=== PATIENT | male | born 1960 | race Two or more races ===

== ENCOUNTER 2024-04-30 09:51 | Outpatient (AMB) | payer OTHER, SELFPAY ==
[2024-04-30 10:20] VITALS: BP 136/58; PULSE 66; O2SAT 97; BMI 41.7
--- NOTE | 2024-04-30 10:20 | A.OFFVIS_ITS ---
Vital Signs 04/30/24 10:20 Height 6 ft 2 in Weight 325 lb 2.909 oz BMI 41.7 BP 136/58 L Blood Pressure Location Rt brachial Position Sitting Pulse 66 Pulse Source Doppler Pulse Oximetry (%) 97 Oxygen Delivery Method Room Air Intake Visit Reasons: prabhakar Allergies No Known Allergies Allergy (Verified 04/30/24 10:26) HPI HPI prabhakar: Details: 64-year-old gentleman, history of obstructive sleep apnea, previously severe and intolerant of CPAP therapy, however with significant weight changes recently who is interested in further evaluation. His complain of unrestful sleep and daytime sleepiness, also nocturia, but no morning headaches. [facility] Social History (Updated 04/30/24 @ 10:26 by Zaria Amador [facility]) Patient Tobacco Use Status: Never used Tobacco Review of Systems Const Reports daytime sleepiness, Denies excessive sweating, Reports fatigue, Denies fever(s), Denies lethargy, Denies malaise, Denies night sweats, Reports snoring and Denies weight loss Eyes Denies blurry vision and Denies itchy eyes ENT Denies nasal congestion, Denies post nasal drip, Denies sinus pain, Denies sinus pressure and Denies other ( Thrush) Card Denies chest pain, Denies pedal edema, Denies dyspnea, Denies orthopnea and Denies paroxysmal nocturnal dyspnea Resp Denies cough, Denies hemoptysis, Denies excessive phlegm production, Denies dyspnea, Reports snoring and Denies wheezing GI Denies abdominal pain and Denies heartburn Musc Denies myalgias, Denies arthralgias and Denies joint swelling Skin/Breast Denies rash Neuro Denies memory loss and Denies seizure-like activity Psych Denies abnormal sleep pattern, Denies anxiety and Denies memory loss Endo Denies excessive sweating, Reports fatigue and Denies heat intolerance Behzad/Lymph Denies easy bruising Aller/Immun Denies itchy eyes, Denies seasonal rhinorrhea and Denies wheezing Physical Exam Vital Signs: Last Vital Signs Pulse 66 04/30/24 10:20 BP 136/58 L 04/30/24 10:20 Pulse Ox 97 04/30/24 10:20 Oxygen Delivery Method Room Air 04/30/24 10:20 BMI result Body Mass Index 41.7 Const General: no acute distress and alert Nutritional Appearance: obese Orientation/consciousness: Other orientation findings ( oriented) HEENT Head: Yes atraumatic Eyes General: appearance normal, both eyes and all related structures Sclerae: sclerae normal EOM: EOMs intact bilaterally Neck Neck: Yes supple Lymphatic: no lymphadenopathy noted Resp Effort & Inspection: normal respiratory effort and no use of accessory muscles Auscultation: clear to auscultation bilaterally Cardio Rate: regular rate Rhythm: regular rhythm Heart sounds: no gallops, no murmurs and no rubs Skin General skin exam: other ( warm) Extrem General: No clubbing, No cyanosis and No edema Assessment & Plan Assessment & Plan (1) PRABHAKAR (obstructive sleep apnea): Code(s): G47.33 - Obstructive sleep apnea (adult) (pediatric) Category: Medical Plan: Unrestful sleep, daytime sleepiness, snoring. [place] Sleepiness Scale score of 16. Will obtain home sleep study. Orders: Orders RT home sleep study Today G47.33 - Obstructive sleep apnea (adult) (pediatric) Coding Level of Care Code New Pt Level 3 (55331) Diagnoses PRABHAKAR (obstructive sleep apnea) G47.33
--- OUTSIDE RECORDS SUMMARY | 2024-04-30 10:58 | XMS_ITS | Clinical Summary ---
[facility] Organization [facility] Address [address] [place] [address] Care Team Providers Care Visitor Use Assistant Name Role Phone Christopher Vogel MD Primary Care Provider Unavailab le Allergies No known active allergies Medications Medication Sig Dispensed Refills Start Date End Date Status Folic Acid 5 MG CAPS Take by mouth. 0 Active Upadacitinib ER 15 MG TB24 Take by mouth daily. 0 Acti ve amLODIPine (NORVASC) tablet 10 mg Take 1 tablet (10 mg total) by mouth daily. 0 Active Efinaconazole 10 % SOLN Apply 1 application topically daily. 8 mL 2 09/10/2019 Active methotrexate 2.5 MG tabletIndications:Rh eumatoid Arthritis Take 1 tablet (2.5 mg total) by mouth every 7 days. 0 Active Meloxicam 5 MG CAPS Take by mouth daily. 0 Active Social History Tobacco Use Types Packs/Day Years Used Date Smoking Tobacco: Never Passive Smoke Exposure: Never Smokeless Tobacco: Never Tobacco Cessation:Counseling Given: Not Answered Alcohol Use Standard Drinks/Week Comments Yes 0 (1 standard drink = 0.6 oz pur e alcohol) occasional Sex and Gender Information Value Date Recorded Sex Assigned at Male 04/19/2022 10:52 AM EST Gender Identity Not on file Sexual Orientation Not on file Job Start Date Occupation Industry Not on file Not on file Not on file Last Filed Vital Signs Vital Sign Reading Time Taken Comments Blood Pressure - - Pulse - - Temperature 36.3 ??C (97.3 ??F) 09/10/2019 3:06 PM ED T Respiratory Rate - - Oxygen Saturation - - Inhaled Oxygen Concentration - - Weight 129.3 kg (285 lb) 04/19/2022 10:50 AM EST Height 188 cm (6' 2 ) 04/19/2022 10:50 AM EST Body Mass Index 36.59 04/19/2022 10:50 AM EST Plan of Treatment Health Maintenance Due Date Last Done Comments Hepatitis C Screening 1960 COVID-19 Vaccine (#1) 1960 Depression Screening 1972 Preventative Health Evaluation 1978 DTap / Tdap / Td (1 - Tdap) 1979 Colon Cancer Screening (Colonoscopy) 2005 Shingrix-Zoster Vaccine (1 of 2) 2010 Influenza Vaccine (#1) 2023 Pneumococcal Vaccine (1 of 1 - PCV) 2025 RSV Adult > 60+ Yrs or Pregn ant (1 - 1-dose 75+ series) 2035 Hepatitis B Vaccines Aged Out No long er eligible based on patient's age to complete this topic Pneumococcal Vaccine Aged Out No long er eligible based on patient's age to complete this topic RSV Ped < 20 months Aged Out No longe r eligible based on patient's age to complete this topic Care Teams Visitor Use Assistant Relationship Specialty Start Date End Date Christopher Vogel MD PCP - General Internal Medicine 12/05/23
--- OUTSIDE RECORDS SUMMARY | 2024-04-30 10:58 | XMS_ITS | Encounter Summary ---
Author Organization [facility] Address [address] [place] [address] Care Team Providers Care Blow Molder Name Role Phone Christopher Vogel MD Primary Care Provider [phone] Reason for Visit * Reason Onset Date Comments Eleuterio Lanza 04/07/2024 Encounter Details Date Type Department Care Team ([facility] st Contact Info) Description 04/07/2024 Telephone Internal Medicine - [place] [address] [facility] [address] [place] [phone] Christopher Vogel MD 175 [facility] [address] [place] [address] Eleuterio Lanza Social History Tobacco Use Types Packs/Day Years Used Date Smoking Tobacco: Never Smokeless Tobacco: Never Alcohol Use Standard Drinks/Week Comments Yes 0 (1 standard drink = 0.6 oz pur e alcohol) Sex and Gender Information Value Date Recorded Sex Assigned at Not on file Legal Sex Male 5:43 AM EST Gender Identity Not on file Sexual Orientation Not on file documented as of this encounter Progress Notes * Glenys Palma MA - 04/23/2024 9:11 AM EST matt could you help with this? * Jana Nicolas - 04/21/2024 11:29 AM EST Patient called and requested a call back when this cologaurd is sent because he has been waiting for over a week. Cb# [phone] * Ariane Jesus MA - 04/16/2024 11:09 AM EST Order printed. Cologuard form completed waiting on provider signature. * Jana Nicolas - 04/15/2024 11:56 AM EST Patient called about message below and requested a call back. Cb# [phone] * Sheryl Felix MA - 04/09/2024 2:13 PM EST Tried to reach patient, no answer, left message to call back 04/09/24 Sheryl Felix MA * Christopher Vogel MD - 04/08/2024 11:28 AM EST Cologuard is not as good as colonoscopy. Did order Cologuard * Glenys Palma MA - 04/08/2024 8:53 AM EST Please advise * Jana Nicolas - 04/07/2024 4:40 PM EST Patient called and requested a cologaurd be sent to him instead of doing a full colonoscopy. Cb# [phone] documented in this encounter Plan of Treatment Not on file documented as of this encounter Visit Diagnoses Not on filedocumented in this encounter Care Teams Blow Molder Relationship Specialty Start Date End Date Christopher Vogel MD [address] [address] PCP - General 08/16/23 documented as of this encounter
--- OUTSIDE RECORDS SUMMARY | 2024-04-30 10:58 | XMS_ITS | Encounter Summary ---
Author Organization [facility] Address [address] [place] [address] Care Team Providers Care Coil Taper Name Role Phone Christopher Vogel MD Primary Care Provider [phone] Reason for Visit * Reason Onset Date Comments Jaspreet - Referral 04/16/2024 Encounter Details Date Type Department Care Team (Late st Contact Info) Description 04/16/2024 Telephone Internal Medicine - [place] [address] [place] [phone] Christopher Vogel MD 175 [facility] [address] [place] [address] Jaspreet - Referral Social History Tobacco Use Types Packs/Day Years [...] as of this encounter Progress Notes * Ariane Jesus MA - 04/17/2024 10:44 AM EST Pt is not seeing Dr. Kraus, he is seeing [facility] needs a new referral to [facility] NPI#[id number]. Please advice. * Malean Trimble - 04/16/2024 3:48 PM EST Received call from [facility], they need a new referral to be faxed because pt isn't seeing Dr Kraus, he is seeing [facility] npi# [id number] Please send updated referral, ty * Glenys Palma MA - 04/16/2024 2:28 PM EST Faxed referral via epic to number provided * Annmarie Foster - 04/16/2024 9:58 AM EST Received a fax from [facility] for an insurance referral. Saw referral in pt chart placed 03/14/24 to correct provider KEREN KRAUS MD - NPI #[id number]. But his location is [address] [place] [address]. Fax referral to [phone]. documented in this encounter Plan of Treatment Not on file documented as of this encounter Visit Diagnoses Not on filedocumented in this encounter Care Teams Coil Taper Relationship Specialty Start Date End Date Christopher Vogel MD [address] [place] [address] [address] [place] [address] PCP - General 08/16/23 documented as of this encounter
--- OUTSIDE RECORDS SUMMARY | 2024-04-30 10:58 | XMS_ITS | Clinical Summary ---
Author Organization [facility] Address [address] [place] [address] Phone Care Team Providers Care Set Rider Name Role Phone Christopher Vogel MD Primary Care Provider [phone] Allergies No known active allergies Medications efinaconazole 10 % solution with applicator Apply 1 application topically daily. 09/10/19 20 Active FOLIC ACID ORAL Folic Acid 5 MG CAPS Take by mouth. - Oral Active meloxicam submicronized 5 mg capsule Take by mouth daily. Active methotrexate 2.5 mg tablet Take 1 tablet (2.5 mg total) by mouth every 7 days. Active upadacitinib (Rinvoq) 15 mg tablet extended release 24 hr Take by mouth daily. Active amLODIPine (NORVASC) 10 mg tablet Take 1 tablet (10 mg total) by mouth 1 (one) time each day. Take 1 tablet (10 mg total) by mouth daily. - Oral 90 tablet 1 02/21/19 25 Active valsartan (DIOVAN) 320 mg tablet Take 1 tablet (320 mg total) by mouth 1 (one) time each day. 60 tablet 1 03/05/19 25 Active bisacodyL (DULCOLAX) 5 mg EC tablet Take 2 tablets by mouth right before beginning bowel prep. See instructions provided by the office 2 tablet 04/23/19 25 Active polyethylene glycol (Golytely) 236-22.74-6.74 -5.86 gram solution Take 4L by mouth once for one dose. May substitue any PEG. Starting at 6PM the night before your procedure drink 1 8oz glasses at your own pace until you complete half of the gallon. Finish 2nd half of the gallon 5 hours before your procedure. 4000 mL 04/23/19 25 Active Active Problems Problem Noted Date Diagnosed Date Hx of vasectomy 03/07/2024 History of implantation of penile prosthesis Benign essential HTN 03/07/2024 Generalized osteoarthritis 03/07/2024 Overview (03/07/2024): knee, foot, lumbar spine; sees Dr. Oneil Obesity 03/07/2024 Suspected COVID-19 virus infection 03/07/2024 Insomnia 07/11/2021 Nocturnal hypoxemia 09/07/2020 [place] (03/07/2024[place] [facility] [place]: Date 06/11/2018; Wt 315#; BMI 42; AHI 87 Obstructive apneas 147; Mixed apneas 0; Central apneas 5; hypopneas 360; average oxygen saturation 91% (lowest 71% with saturations <88% for 5% or more of study) - Obstructive Sleep Apnea - severe; mostly hypopneas with obstructive apneas; with sleep related hypoventilation by 2020 home sleep apnea test. Erectile dysfunction 09/03/2020 Overview (03/07/2024): Cialis 20 mg from /Urologist-- 24 tab for 90 days. Has 3 refills Last seen 1 yr ago. Recently seen for BPH- had studies done History of COVID-19 09/03/2020 Overview (03/07/2024): Positive PCR test 01/02/20 Hyperlipidemia 09/03/2020 Migraine 09/03/2020 Obstructive sleep apnea 09/03/2020 Psoriasis 09/03/2020 Rheumatoid arthritis 09/03/2020 Overview (03/07/2024): [facility] [place] Severe obesity (BMI 35.0-39.9) with comorbidity 09/03/2020 Primary osteoarthritis of right knee 08/30/2020 Herpes simplex type 2 infection 02/05/2013 Recurrent acute tonsillitis 04/04/2005 Encounters Date Type Department Care Team Description 04/16/2024 Telephone Internal Medicine [address] [phone] Christopher Vogel MD Jaspreet - Referral 04/07/2024 Telephone Internal Medicine [address] [phone] Chirstopher Vogel MD Jaspreet: Cologaurd 03/14/2024 11:30 AM EST Office Visit Internal Medicine [address] [phone] Christopher Vogel MD Primary hypertension (Primary Dx); Pure hypercholesterolemia; HUMBERTO (obstructive sleep apnea) 03/05/2024 [place] [facility] [address] [phone] Christopher Vogel MD Breathing Problem from Last 3 Months Surgical History Surgery Date Site/Laterality Comments TONSILLECTOMY ADENOIDECTOMY, BILATERAL MYRINGOTOMY AND TUBES PROCEDURE: [place] TONSILLECTOMY & ADENOIDECTOMY <AGE 12 KNEE ARTHROSCOPY W/ MENISCAL REPAIR 2018 Left PROCEDURE: [place] ARTHROSCOPY KNEE W/MENISCUS RPR MEDIAL/LATERAL KNEE ARTHROSCOPY W/ MENISCAL REPAIR 2019 Left PROCEDURE: [place] ARTHROSCOPY KNEE W/MENISCUS RPR MEDIAL/LATERAL VASECTOMY Bilateral PROCEDURE: [place] VASECTOMY UNI/BI SPX W/POSTOP SEMEN EXAMS TONSILLECTOMY PROCEDURE: HISTORICAL TONSILLECTOMY COLONOSCOPY 06/11/2014 PROCEDURE: HISTORICAL COLONOSCOPY KNEE ARTHROSCOPY W/ MENISCAL REPAIR 01/2021 Right PROCEDURE: [place] ARTHROSCOPY KNEE W/MENISCUS RPR MEDIAL/LATERAL ORTHOPEDIC SURGERY 04/2022 Left PROCEDURE: HISTORICAL ORTHOPEDIC SURGERY; COMMENT: left foot Medical History Medical History Date Comments Essential hypertension DX:Essent ial hypertension Primary osteoarthritis of right knee 08/30/2020 DX:Primary osteoarthritis of right knee Severe obesity (BMI 35.0-39. 9) with comorbidity (CMS/HCC) 09/03/2020 DX:Severe obesity (BMI 35.0- 39.9) with comorbidity (HCC) Erectile dysfunction 09/03/2020 DX:Erectile dysfunction Hyperlipidemia 09/03/2020 DX:Hyperlipidemi a Herpes simplex type 2 infection 09/03/2020 DX:Herpes simplex type 2 infection Migraine 09/03/2020 DX:Migraine Psoriasis 09/03/2020 DX:Psoriasis Rheumatoid arthritis (CMS/HCC) 09/03/2020 D X:Rheumatoid arthritis (HCC) Obstructive sleep apnea 09/03/2020 DX:Obstr uctive sleep apnea History of COVID-19 09/03/2020 DX:History o f COVID-19; COMMENT: Positive PCR test 01/02/20 Family History Medical History Relation Name Comments Liver cancer Father Hypertension Mother Relation Name Status Comments Father Mother Alive Social History Tobacco Use Types Packs/Day Years Used Date Smoking Tobacco: Never Smokeless Tobacco: Never Alcohol Use Standard Drinks/Week Comments Yes 0 (1 standard drink = 0.6 oz pur e alcohol) Sex and Gender Information Value Date Recorded Sex Assigned at Not on file Legal Sex Male 5:43 AM EST Gender Identity Not on file Sexual Orientation Not on file Obstetrics History Last Filed Vital Signs Vital Sign Reading Time Taken Comments Blood Pressure 158/54 03/14/2024 11:41 AM EST Pulse 79 03/14/2024 11:41 AM EST Temperature 36.6 ??C (97.9 ??F) 03/14/2024 11:[address] Respiratory Rate - - Oxygen Saturation 97% 03/14/2024 11:41 AM EST Inhaled Oxygen Concentration - - Weight 142 kg (313 lb 9.6 oz) 03/14/2024 11:41 A M EST Height 182.9 cm (6') 01/28/2024 11:03 AM EST Body Mass Index 42.53 01/28/2024 11:03 AM EST Plan of Treatment Health Maintenance Due Date Last Done Comments Pneumococcal Vaccine: 50+ Years (1 of 1 - PCV) 2010 RSV Immunization Patients 60+ Years Old (1 - Risk 60-74 years 1-dose series) 2020 Cholesterol Screening (Lipid Panel) 01/28/2022 Depression Screening 01/28/2022 HIV Screening 01/28/2022 Hepatitis C Screening 01/28/2022 Social Influencers of Health Screening 01/28/2022 Hypertension/CHF/CAD Annual BMP Blood Test 01/27/2025 01/28/2024 DTaP,Tdap,and Td Vaccines (3 - Td or Tdap) 11/08/2026 11/08/2016, 07/13/2006 Colorectal Cancer Screening: FIT-DNA (Cologuard) 04/23/2027 04/22/2024 Zoster Vaccines Completed 09/01/2020, 06/25/2020 COVID-19 Vaccine Completed 12/08/2023, , 04/30/2020, Additional history exists Influenza Vaccine Completed 12/08/2023, , 12/10/2021, Additional history exists HIB Vaccines Aged Out No longer eligi ble based on patient's age to complete this topic HPV Vaccines Aged Out No longer eligi ble based on patient's age to complete this topic Hepatitis A Vaccines Aged Out No long er eligible based on patient's age to complete this topic Hepatitis B Vaccines Aged Out No long er eligible based on patient's age to complete this topic IPV Vaccines Aged Out No longer eligi ble based on patient's age to complete this topic MMR Vaccines Aged Out No longer eligi ble based on patient's age to complete this topic Meningococcal ACWY Vaccine Aged Out N o longer eligible based on patient's age to complete this topic Meningococcal B Vacine Aged Out No lo nger eligible based on patient's age to complete this topic Pneumococcal Vaccine: Pediatrics (0 to 5 Years) and At-Risk Patients (6 to 64 Years) Aged Out No longer eligible based on patient's age to complete this topic RSV Immunization Patients Under 20 months Aged Out No longer eligible based on patient's age to complete this topic Varicella Vaccines Aged Out No longer eligible based on patient's age to complete this topic Procedures Procedure Name Priority Date/Time Associated Diagnosis Comments LAB COLOGUARD?? COLON CANCER SCREEN Routine 04/22/2024 5:00 AM EST Preventative health care COMPREHENSIVE METABOLIC PANEL Routine 01/28/2024 12:06 PM EST Anemia, unspecified type from Last 3 Months or Most Recently Relevant to Health Maintenance Results * Cologuard?? colon cancer screening (04/22/2024 5:00 AM EST) COLOGUARD Negative Negative [facility] Comment: NEGATIVE TEST RESULT. A negative Cologuard result indicates a low likelihood that a colorectal cancer (CRC) or advanced adenoma (adenomatous polyps with more advanced pre-malignant features) ??is present. The chance that a person with a negative Cologuard test has a colorectal cancer is less than 1 in 1500 (negative predictive value >99.9%) or has an ??advanced adenoma is less than ??5.3% (negative predictive value 94.7%). These data are based on a prospective cross-sectional study of 10,000 individuals at average risk for colorectal cancer who were screened with both Cologuard and colonoscopy. (Latasha Moraels et al, N Engl J Med 2014;370(14):1286- 1297) The normal value (reference range) for this assay is negative. COLOGUARD RE-SCREENING RECOMMENDATION: Periodic colorectal cancer screening is an important part of preventive healthcare for asymptomatic individuals at average risk for colorectal cancer. ??Following a negative Cologuard result, the [place] [employer] Society and U.S. Multi-Society Task Force screening guidelines recommend a Cologuard re-screening interval of 3 years. References: [place] [employer] Society Guideline for Colorectal Cancer Screening: https://www.cancer.org/cancer/hrlpa-zrkhbi-geydrz/jtxeongsb-nyskjyehq-hkflyky/ac s-rec ommendations.html.; Edis DK, Sabra DAILY, Colleen GeK, Colorectal Cancer Screening: Recommendations for Physicians and Patients from the U.S. Multi-Society Task Force on Colorectal Cancer Screening , Am J Gastroenterology 2017; 112:0747-2957. TEST DESCRIPTION: Composite algorithmic analysis of stool DNA-biomarkers with hemoglobin immunoassay. ?? Quantitative values of individual biomarkers are not reportable and are not associated with individual biomarker result reference ranges. Cologuard is intended for colorectal cancer screening of adults of either sex, 45 years or older, who are at average-risk for colorectal cancer (CRC). Cologuard has been approved for use by the U.S. FDA. The performance of Cologuard was established in a cross sectional study of average-risk adults aged 50-84. Cologuard performance in patients ages 45 to 49 years was estimated by sub-group analysis of near-age groups. Colonoscopies performed for a positive result may find as the most clinically significant lesion: colorectal cancer [4.0%], advanced adenoma (including sessile serrated polyps greater than or equal to 1cm diameter) [20%] or non- advanced adenoma [31%]; or no colorectal neoplasia [45%]. These estimates are derived from a prospective cross-sectional screening study of 10,000 individuals at average risk for colorectal cancer who were screened with both Cologuard and colonoscopy. (Latasha Everett al, N Engl J Med 2014;370(14):1210-9760.) Cologuard may produce a false negative or false positive result (no colorectal cancer or precancerous polyp present at colonoscopy follow up). A negative Cologuard test result does not guarantee the absence of CRC or advanced adenoma (pre-cancer). The current Cologuard screening interval is every 3 years. ([place] Cancer Society and U.S. Multi-Society Task Force). Cologuard performance data in a 10,000 patient pivotal study using colonoscopy as the reference method can be accessed at the following location: www.Hand Talk/results. Additional description of the Cologuard test process, warnings and precautions can be found at www.cologuard.com. Stool 04/22/2024 5:00 AM EST 04/24/2024 10:06 AM EST us Christopher Vogel MD LAB MOLECULAR DIAGNOSTICS ORDERA BLES Final Result [facility] [address] [address] [employer] [address] [place] [address] * (ABNORMAL) Comprehensive metabolic panel (01/28/2024 12:06 PM EST) Sodium 138 133 - 145 mmol/L LAB CHEMISTRY METHOD 01/28/2024 2:01 PM EST [facility] Potassium 4.0 3.5 - 5.5 mmol/L LAB CHEMISTRY METHOD 01/28/2024 2:01 PM EST [facility] Chloride 106 96 - 110 mmol/L LAB CHEMISTRY METHOD 01/28/2024 2:01 PM EST [facility] CO2 27 21 - 32 mmol/L LAB CHEMISTRY METHOD 01/28/2024 2:[address] [facility] Anion Gap 5 3 - 11 LAB CHEMISTRY METHOD 01/28/2024 2:[address] [facility] Glucose 143(H) 70 - 100 mg/dL LAB CHEMISTRY METHOD 01/28/2024 2:[address] [facility] BUN 16 5 - 25 mg/dL LAB CHEMISTRY METHOD 01/28/2024 2:[address] [facility] Creatinine 1.00 0.70 - 1.30 mg/dL LAB CHEMISTRY METHOD 01/28/2024 2:[address] [facility] eGFR 85 >=60 mL/min/1. 73m2 LAB CHEMISTRY METHOD 01/28/2024 2:[address] [facility] Comment:Calculation based on the??Chronic Kidney Disease Epidemiology Collaboration (CKD-EPI) equation refit??without adjustment for race. BUN/Creatinine Ratio 16.0 LAB CHEMISTRY METHOD 01/28/2024 2:[address] [facility] Calcium 8.9 8.5 - 10.5 mg/dL LAB CHEMISTRY METHOD 01/28/2024 2:[address] [facility] AST (SGOT) 12 10 - 42 unit/L LAB CHEMISTRY METHOD 01/28/2024 2:[address] [facility] ALT (SGPT) 18 10 - 60 unit/L LAB CHEMISTRY METHOD 01/28/2024 2:[address] [facility] Alkaline Phosphatase 75 42 - 121 unit/L LAB CHEMISTRY METHOD 01/28/2024 2:[address] [facility] Total Protein 7.1 6.0 - 8.0 g/dL LAB CHEMISTRY METHOD 01/28/2024 2:[address] [facility] Albumin 3.6 3.2 - 5.0 g/dL LAB CHEMISTRY METHOD 01/28/2024 2:[address] [facility] Total Bilirubin 1.0 0.0 - 1.4 mg/dL LAB CHEMISTRY METHOD 01/28/2024 2:01 PM EST [facility] Blood Venous blood specimen / Unknown Venipuncture / Unknown 01/28/2024 12:06 PM EST 01/28/2024 1:33 PM EST us [facility] LAB BLOOD ORDERABLES Final Resul t [facility] ([facility]) [facility] [address] [place] [address], from Last 3 Months or Most Recently Relevant to Health Maintenance Insurance [employer] Care Teams Set Rider Relationship Specialty Start Date End Date Christopher Vogel MD [address] [address] PCP - General 08/16/23
== END 2024-04-30 10:51 | disposition home or self-care (01) ==
LOC: HO.HPS 09:51
PROVIDERS: PCP Internal Medicine; Visit Provider Internal Medicine Pulmonary Disease
DX: G47.33 Obstructive sleep apnea (adult) (pediatric) (principal)
CPT/HCPCS: 99203

== ENCOUNTER → 2024-07-03 09:51 | Outpatient (REF) | payer OTHER, SELFPAY ==
--- OUTSIDE RECORDS SUMMARY | 2024-07-03 10:46 | XMS_ITS | Clinical Summary ---
[facility] Organization [facility] Address [address] [place] [address] Care Team Providers Care All Round Logger Name Role Phone Christopher Vogel MD Primary [...] age to complete this topic Care Teams All Round Logger Relationship Specialty Start Date End Date Christopher Vogel MD PCP - General Internal Medicine 12/05/23
--- OUTSIDE RECORDS SUMMARY | 2024-07-03 10:46 | XMS_ITS | Clinical Summary ---
Author Organization [facility] Address [address] [place] [address] Phone Care Team Providers Care Trust Accounts Supervisor Name Role Phone Christopher Vogel MD Primary Care Provider [phone] Allergies No known active allergies Medications efinaconazole [...] sleep apnea 09/03/2020 Psoriasis 09/03/2020 Rheumatoid arthritis ([facility] V24, [facility] V28) 09/03/2020 Overview (03/07/2024): [facility] in [place] Severe obesity (BMI 35.0-39. 9) with comorbidity ([facility] V24, [facility] V28) 09/03/2020 Primary osteoarthritis of right knee 08/30/2020 Herpes simplex type 2 infection 02/05/2013 Recurrent acute tonsillitis 04/04/2005 Encounters Date Type Department Care Team Description 04/16/2024 Telephone Internal Medicine [facility] [address] [facility] [address] [place] [address] Christopher Vogel MD Jaspreet - Referral 04/07/2024 Telephone Internal Medicine [facility] [address] [facility] [address] [place] [address] Christopher Vogel MD Joseph: Cologaurd from Last 3 Months Surgical History Surgery Date Site/Laterality Comments TONSILLECTOMY ADENOIDECTOMY, BILATERAL MYRINGOTOMY AND TUBES PROCEDURE: [place] TONSILLECTOMY & ADENOIDECTOMY <AGE 12 KNEE ARTHROSCOPY W/ MENISCAL REPAIR 2018 Left PROCEDURE: [place] ARTHROSCOPY KNEE W/MENISCUS RPR MEDIAL/LATERAL KNEE ARTHROSCOPY W/ MENISCAL REPAIR 2019 Left PROCEDURE: [place] ARTHROSCOPY KNEE W/MENISCUS RPR MEDIAL/LATERAL VASECTOMY Bilateral PROCEDURE: [place] VASECTOMY UNI/BI SPX W/POSTOP SEMEN EXAMS TONSILLECTOMY PROCEDURE: HISTORICAL TONSILLECTOMY COLONOSCOPY 06/11/2014 PROCEDURE: HISTORICAL COLONOSCOPY KNEE ARTHROSCOPY W/ MENISCAL REPAIR 01/2021 Right PROCEDURE: [place] ARTHROSCOPY KNEE W/MENISCUS RPR MEDIAL/LATERAL ORTHOPEDIC SURGERY 04/2022 Left PROCEDURE: HISTORICAL ORTHOPEDIC SURGERY; COMMENT: left foot Medical History Medical History Date Comments Essential hypertension DX:Essent ial hypertension Primary osteoarthritis of right knee 08/30/2020 DX:Primary osteoarthritis of right knee Severe obesity (BMI 35.0-39. 9) with comorbidity (CMS/HCC V24, CMS/HCC V28) 09/03/2020 DX:Severe obesi ty (BMI 35.0- 39.9) with comorbidity ([facility]) Erectile dysfunction 09/03/2020 DX:Erectile dysfunction Hyperlipidemia 09/03/2020 DX:Hyperlipidemi a Herpes simplex type 2 infection 09/03/2020 DX:Herpes simplex type 2 infection Migraine 09/03/2020 DX:Migraine Psoriasis 09/03/2020 DX:Psoriasis Rheumatoid arthritis (CMS/ C V24, CMS/HCC V28) 09/03/2020 DX:Rheumatoid arthritis (HCC ) Obstructive sleep apnea 09/03/2020 DX:Obstr uctive sleep [...] Value Date Recorded Sex Assigned at Male 06/24/2024 12:41 PM EDT Legal Sex Male 5:43 AM EST Gender Identity Male 06/24/2024 12:41 PM EDT Sexual Orientation Straight 06/24/2024 12 :41 PM EDT Obstetrics History Last Filed Vital Signs Vital [...] 01/28/2024 11:03 AM EST Plan of Treatment Upcoming Encounters Date Type Department Care Team (Late st Contact Info) Description 07/08/2024 10:00 AM EDT Office Visit Internal Medicine - [place] [address] [facility] [address] [place] [address] Mona Baron NP [address] [facility] [address] [place] [address] Health Maintenance Due Date Last Done Comments Pneumococcal Vaccine: 50+ Years (1 of 1 - PCV) 2010 RSV Immunization Adult Patients (1 - Risk 60-74 years 1-dose series) 2020 Cholesterol Screening (Lipid Panel) 01/28/2022 Depression Screening 01/28/2022 HIV Screening 01/28/2022 Hepatitis C Screening 01/28/2022 Social Influencers of Health Screening 01/28/2022 COVID-19 Vaccine (5 - Pfizer risk season) 2024 12/08/2023, 12/01/2020, 04/30/2020, Additional history exists Hypertension/CHF/CAD Annual BMP Blood Test 01/27/2025 01/28/2024 DTaP,Tdap,and Td Vaccines (3 - Td or Tdap) 11/08/2026 11/08/2016, 07/13/2006 Colorectal Cancer Screening: FIT-DNA (Cologuard) 04/23/2027 04/22/2024 Zoster Vaccines Completed 09/01/2020, 06/25/2020 Influenza Vaccine Completed 12/08/2023, , 12/10/2021, Additional [...] age to complete this topic Meningococcal B Vaccine Aged Out No l onger eligible based on patient's age to complete [...] 5:00 AM EST) COLOGUARD Negative Negative [facility] Comment: NEGATIVE TEST RESULT. A [...] screened with both Cologuard and colonoscopy. (Latasha Morales et al, N Engl J Med 2014;370(14):1286- 1297) The normal value (reference range) for this assay is negative. COLOGUARD RE-SCREENING RECOMMENDATION: Periodic colorectal cancer screening is an important part of preventive healthcare for asymptomatic individuals at average risk for colorectal cancer. ??Following a negative Cologuard result, the [place] [employer] Society and U.S. Multi-Society Task Force screening guidelines recommend a Cologuard re-screening interval of 3 years. References: [place] [employer] Guideline for Colorectal Cancer Screening: https://www.cancer.org/cancer/hosfn-dpesoo-kjqjbt/mutlmhvcr-vtczdtgnp-bwgghxh/ac s-rec ommendations.html.; Edis ARRINGTON, Sabra CR, Colleen GeK, Colorectal Cancer Screening: Recommendations for Physicians and Patients from the U.S. Multi-Society Task Force on Colorectal Cancer Screening , Am J Gastroenterology 2017; 112:5710-0609. TEST DESCRIPTION: Composite algorithmic analysis of stool [...] screened with both Cologuard and colonoscopy. (Latasha Grimm. et al, N Engl J Med 2014;370(14):4226-0128.) Cologuard may produce a false negative or false positive result (no colorectal cancer or precancerous polyp present at colonoscopy follow up). A negative Cologuard test result does not guarantee the absence of CRC or advanced adenoma (pre-cancer). The current Cologuard screening interval is every 3 years. ([place] [employer] Society and U.S. Multi-Society Task Force). Cologuard performance data in a 10,000 patient pivotal study using colonoscopy as the reference method can be accessed at the following location: www.MediSwipe/results. Additional description of the Cologuard test process, warnings and precautions can be found at www.cologuard.com. Stool 04/22/2024 5:00 AM EST 04/24/2024 10:06 AM EST us Christopher Vogel MD LAB MOLECULAR DIAGNOSTICS ORDERA BLES Final Result [facility] [address] [address] [facility] [address] [place] [address] * (ABNORMAL) Comprehensive metabolic panel (01/28/2024 12:06 PM EST) Sodium 138 133 - 145 mmol/L LAB CHEMISTRY METHOD 01/28/2024 2:01 PM EST [facility] Potassium 4.0 3.5 - 5.5 mmol/L LAB CHEMISTRY METHOD 01/28/2024 2:01 PM [facility] Chloride 106 96 - 110 mmol/L LAB CHEMISTRY METHOD 01/28/2024 2:01 PM [facility] CO2 27 21 - 32 mmol/L LAB CHEMISTRY METHOD 01/28/2024 2:01 PM [facility] Anion Gap 5 3 - 11 LAB CHEMISTRY METHOD 01/28/2024 2:01 PM [facility] Glucose 143(H) 70 - 100 mg/dL LAB CHEMISTRY METHOD 01/28/2024 2:01 PM [facility] BUN 16 5 - 25 mg/dL LAB CHEMISTRY METHOD 01/28/2024 2:01 PM [facility] Creatinine 1.00 0.70 - 1.30 mg/dL LAB CHEMISTRY METHOD 01/28/2024 2:01 PM [facility] eGFR 85 >=60 mL/min/1. 73m2 LAB CHEMISTRY METHOD 01/28/2024 2:01 PM [facility] Comment:Calculation based on the??Chronic Kidney Disease Epidemiology Collaboration (CKD-EPI) equation refit??without adjustment for race. BUN/Creatinine Ratio 16.0 LAB CHEMISTRY METHOD 01/28/2024 2:01 PM [facility] Calcium 8.9 8.5 - 10.5 mg/dL LAB CHEMISTRY METHOD 01/28/2024 2:01 PM [facility] AST (SGOT) 12 10 - 42 unit/L LAB CHEMISTRY METHOD 01/28/2024 2:01 PM [facility] ALT (SGPT) 18 10 - 60 unit/L LAB CHEMISTRY METHOD 01/28/2024 2:01 PM [facility] Alkaline Phosphatase 75 42 - 121 unit/L LAB CHEMISTRY METHOD 01/28/2024 2:01 PM [facility] Total Protein 7.1 6.0 - 8.0 g/dL LAB CHEMISTRY METHOD 01/28/2024 2:01 PM EST [facility] Albumin 3.6 3.2 - 5.0 g/dL LAB CHEMISTRY METHOD 01/28/2024 2:01 PM EST [facility] Total Bilirubin 1.0 0.0 - 1.4 mg/dL LAB CHEMISTRY METHOD 01/28/2024 2:01 PM [facility] Blood Venous blood specimen / Unknown Venipuncture / Unknown 01/28/2024 12:06 PM EST 01/28/2024 1:33 PM EST us [facility] LAB BLOOD ORDERABLES Final Re sult [facility] [address] [place] [address], from Last 3 Months or Most Recently Relevant to Health Maintenance Insurance [employer] Care Teams Trust Accounts Supervisor Relationship Specialty Start Date End Date Christopher Vogel MD [address] [address] PCP - General 08/16/23
== END ==
LOC: HO.SL 09:51
PROVIDERS: Visit Provider Internal Medicine Pulmonary Disease
DX: G47.33 Obstructive sleep apnea (adult) (pediatric) (principal)
CPT/HCPCS: 95811